=== PATIENT | female | born 1945 | race Caucasian/White ===

== ENCOUNTER 2016-06-13 06:07 | Day surgery (SDC) | payer OTHER ==
--- NOTE | ~2016-06-13 | EGD ---
EGD REPORT [facility] [address] [address] NAME: JOSE GUADALUPE GOLDBERG : 41 STATUS : [facility] PAT#: [id number] AGE: 70 ADM/REG DATE : 06/13/16 MR#: [id number] REPORT SERV DATE: 06/26/16 DICTATED BY: DATE: REPORT STATUS : Draft TRANSCRIBED BY: [employer] DATE: 06/26/16 THIS EXAM WAS SENT IN ERROR
--- NOTE | ~2016-06-13 | EGD ---
EGD REPORT [facility] [address] [address] NAME: ARIELLA CAMPOS : 41 STATUS : [facility] PAT#: [id number] AGE: 70 ADM/REG DATE : 06/13/16 MR#: [id number] REPORT SERV DATE: 06/26/16 DICTATED BY: DATE: REPORT STATUS : Draft TRANSCRIBED BY: [employer] DATE: 06/26/16 [facility] Patient Name: Ariella Campos Date of : 1945 Attending MD: MARION ARROYO MD Procedure Date No Time: 06/13/2016 Procedure: Colonoscopy Indications: High risk colon cancer surveillance: Personal history adenoma >= 10 mm in size, High risk colon CA surveillance: Personal history multiple (3 or more) adenomas, change in bowel habits, recent melena Referring MD: Lopez Elam Medicines: Monitored Anesthesia Care Complications: No immediate complications. Procedure: Pre-Anesthesia Assessment: - ASA Grade Assessment: III - A patient with severe systemic disease. After I obtained informed consent, the scope was passed under direct vision. Throughout the procedure, the patient's blood pressure, pulse, and oxygen saturations were monitored continuously. The PCF H190L [id number] was introduced through the anus and advanced to the cecum, identified by appendiceal orifice and ileocecal valve. The colonoscopy was performed without difficulty. The patient tolerated the procedure well. The quality of the bowel preparation was good. Findings: The perianal and digital rectal examinations were normal. Multiple small and large-mouthed diverticula were found in the sigmoid colon. A sessile polyp was found in the transverse colon. The polyp was small in size. The polyp was removed with a cold biopsy forceps. Resection and retrieval were complete. A sessile polyp was found at 60 cm proximal to the anus. The polyp was small in size. The polyp was removed with a cold biopsy forceps. Resection and retrieval were complete. A sessile polyp was found at the splenic flexure. The polyp was diminutive in size. The polyp was removed with a cold biopsy forceps. Resection and retrieval were complete. A sessile polyp was found at the splenic flexure. The polyp was small in size. The polyp was removed with a cold snare. Resection and retrieval were complete. A sessile polyp was found in the sigmoid colon. The polyp was diminutive in size. The polyp was removed with a cold biopsy forceps. Resection and EGD REPORT [address] [address] NAME: ARIELLA CAMPOS : [birth year] STATUS : [facility] PAT#: [id number] AGE: 70 ADM/REG DATE : 06/13/16 MR#: [id number] REPORT SERV DATE: 06/26/16 DICTATED BY: DATE: REPORT STATUS : Draft TRANSCRIBED BY: [employer] DATE: 06/26/16 retrieval were complete. No other significant abnormalities were identified in a careful examination of the remainder of the colon. There is no endoscopic evidence of inflammation, mass, ulcerations or angioectasia in the entire colon. Biopsies were taken with a cold forceps from the entire colon for evaluation of microscopic colitis. Internal hemorrhoids were found during retroflexion and were Grade I (internal hemorrhoids that do not prolapse). No additional abnormalities were found on retroflexion. Impression: - Diverticulosis in the sigmoid colon. - One small polyp in the transverse colon. Resected and retrieved. - One small polyp at 60 cm proximal to the anus. Resected and retrieved. - One diminutive polyp at the splenic flexure. Resected and retrieved. - One small polyp at the splenic flexure. Resected and retrieved. - One diminutive polyp in the sigmoid colon. Resected and retrieved. - Internal hemorrhoids. Recommendation: - Patient has a contact number available for emergencies. The signs and symptoms of potential delayed complications were discussed with the patient. Return to normal activities tomorrow. Written discharge instructions were provided to the patient. - High fiber diet. - Discharge patient to home. - Continue present medications. - Await pathology results. - Repeat colonoscopy in 3 years for surveillance. Procedure Code(s): --- Professional --- 37730, Colonoscopy, flexible, proximal to splenic flexure; with removal of tumor(s), polyp(s), or other lesion(s) by snare technique 72935, 59, Colonoscopy, flexible, proximal to splenic flexure; with biopsy, single or multiple Diagnosis Code(s): --- Professional --- K64.0, First degree hemorrhoids K57.30, Diverticulosis of large intestine without perforation or abscess without bleeding D12.5, Benign neoplasm of sigmoid colon D12.6, Benign neoplasm of colon, unspecified EGD REPORT [address] [address] NAME: ARIELLA CAMPOS : [birth year] STATUS : [facility]#: [id number] AGE: 70 ADM/REG DATE : 06/13/16 MR#: [id number] REPORT SERV DATE: 06/26/16 DICTATED BY: DATE: REPORT STATUS : Draft TRANSCRIBED BY: [employer] DATE: 06/26/16 D12.3, Benign neoplasm of transverse colon Z86.010, Personal history of colonic polyps CPT copyright 2013 [employer]. All rights reserved. The codes documented in this report are preliminary and upon fixture maker review may be revised to meet current compliance requirements. MARION ARROYO MD 06/13/2016 8:30 AM This report has been signed electronically. Number of Addenda: 0 Note Initiated On: 06/13/2016 7:46 AM Scope Withdrawal Time 0 hours 11 minutes 53 seconds
--- NOTE | ~2016-06-13 | EGD ---
EGD REPORT [facility] [address] [address] NAME: ARIELLA CAMPOS : 41 STATUS : [facility] PAT#: [id number] AGE: 70 ADM/REG DATE : 06/13/16 MR#: [id number] REPORT SERV DATE: 06/26/16 DICTATED BY: DATE: REPORT STATUS : Draft TRANSCRIBED BY: [employer] DATE: 06/26/16 Endoscopy Center Patient Name: Ariella Campos Date of : 1945 Attending MD: MARION ARROYO MD Procedure Date No Time: 06/13/2016 Procedure: Upper GI endoscopy Indications: Melena Referring MD: Lopez Elam Medicines: Monitored Anesthesia Care Complications: No immediate complications. Procedure: Pre-Anesthesia Assessment: - ASA Grade Assessment: III - A patient with severe systemic disease. After obtaining informed consent, the endoscope was passed under direct vision. Throughout the procedure, the patient's blood pressure, pulse, and oxygen saturations were monitored continuously. The GIF H190 [id number] was introduced through the mouth, and advanced to the third part of duodenum. The upper GI endoscopy was accomplished without difficulty. The patient tolerated the procedure well. 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 Biopsies were taken with a cold forceps for histology. A small hiatus hernia was present. There is no endoscopic evidence of Bagley's esophagus, areas of erosion, ulcerations or varices in the entire esophagus. A single 20 mm pedunculated polyp was found on the greater curvature of the gastric antrum. Area was successfully injected with 3 mL of a 1:10,000 solution of epinephrine for improved access (by lifting the lesion prior to destruction). Area was successfully injected with 3 mL Beatrice ink for tattooing. The polyp was removed with a hot snare. Resection and retrieval were complete. To prevent bleeding after the polypectomy, two hemostatic clips were successfully placed. There was no bleeding during, and at the end, of the procedure. A single small papule (nodule) with was found in the gastric antrum. Biopsies were taken with a cold forceps for histology. No other significant abnormalities were identified in a careful examination of the stomach. There is no endoscopic evidence of ulceration or varices in the entire examined stomach. The examined duodenum was normal. There is no endoscopic evidence of inflammation, mucosal abnormalities EGD REPORT [place] [id number] [facility]. [address] NAME: ARIELLA CAMPOS : 41 STATUS : [facility] PAT#: [id number] AGE: 70 ADM/REG DATE : 06/13/16 MR#: [id number] REPORT SERV DATE: 06/26/16 DICTATED BY: DATE: REPORT STATUS : Draft TRANSCRIBED BY: [employer] DATE: 06/26/16 or ulceration in the entire examined duodenum. The cardia and gastric fundus were otherwise normal on retroflexion. 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 Biopsied. - Hiatus hernia. - A single gastric polyp. Resected and retrieved. Injected. Clips were placed. - A single small papule (nodule) with was found in the stomach. Biopsied. - Normal examined duodenum. Recommendation: - Patient has a contact number available for emergencies. The signs and symptoms of potential delayed complications were discussed with the patient. Return to normal activities tomorrow. Written discharge instructions were provided to the patient. - Return to previous diet. - Discharge patient to home. - Continue present medications. - Await pathology results. Procedure Code(s): --- Professional --- 70197, Esophagogastroduodenoscopy, flexible, transoral; with removal of tumor(s), polyp(s), or other lesion(s) by snare technique 83971, 59, Esophagogastroduodenoscopy, flexible, transoral; with directed submucosal injection(s), any substance 97332, 59, Esophagogastroduodenoscopy, flexible, transoral; with biopsy, single or multiple Diagnosis Code(s): --- Professional --- Q39.4, Esophageal web K44.9, Diaphragmatic hernia without obstruction or gangrene K31.7, Polyp of stomach and duodenum K31.9, Disease of stomach and duodenum, unspecified K92.1, Melena CPT copyright 2013 [employer]. All rights reserved. The codes documented in this report are preliminary and upon fire sprinkler apparatus inspector review may be revised to meet current compliance requirements. MARION ARROYO MD EGD REPORT [facility] [address] [address] NAME: ARIELLA CAMPOS : 41 STATUS : [facility] PAT#: [id number] AGE: 70 ADM/REG DATE : 06/13/16 MR#: [id number] REPORT SERV DATE: 06/26/16 DICTATED BY: DATE: REPORT STATUS : Draft TRANSCRIBED BY: [employer] DATE: 06/26/16 06/13/2016 8:09 AM This report has been signed electronically. Number of Addenda: 0 Note Initiated On: 06/13/2016 7:46 AM Scope Withdrawal Time 0 hours 0 minutes 0 seconds [address] [id number]
--- NOTE | ~2016-06-13 | EGD ---
EGD REPORT [facility] [address] [address] NAME: ARIELLA CAMPOS : 41 STATUS : [facility] PAT#: [id number] AGE: 70 ADM/REG DATE : 06/13/16 MR#: [id number] REPORT SERV DATE: 06/26/16 DICTATED BY: DATE: REPORT STATUS : Draft TRANSCRIBED BY: [employer] DATE: 06/26/16 Endoscopy Center Patient Name: Ariella Campos Date of : 1945 Attending MD: MARION ARROYO MD Procedure Date No Time: 06/13/2016 Procedure: Upper GI endoscopy Indications: Melena Referring MD: Lopez lEam Medicines: Monitored Anesthesia Care Complications: No immediate complications. Procedure: Pre-Anesthesia Assessment: - ASA Grade Assessment: III - A patient with severe systemic disease. After obtaining informed consent, the endoscope was passed under direct vision. Throughout the procedure, the patient's blood pressure, pulse, and oxygen saturations were monitored continuously. The GIF H190 [id number] was introduced through the mouth, and advanced to the third part of duodenum. The upper GI endoscopy was accomplished without difficulty. The patient tolerated the procedure well. 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 Biopsies were taken with a cold forceps for histology. A small hiatus hernia was present. There is no endoscopic evidence of Bagley's esophagus, areas of erosion, ulcerations or varices in the entire esophagus. A single 20 mm pedunculated polyp was found on the greater curvature of the gastric antrum. Area was successfully injected with 3 mL of a 1:10,000 solution of epinephrine for improved access (by lifting the lesion prior to destruction). Area was successfully injected with 3 mL Beatrice ink for tattooing. The polyp was removed with a hot snare. Resection and retrieval were complete. To prevent bleeding after the polypectomy, two hemostatic clips were successfully placed. There was no bleeding during, and at the end, of the procedure. A single small papule (nodule) with was found in the gastric antrum. Biopsies were taken with a cold forceps for histology. No other significant abnormalities were identified in a careful examination of the stomach. There is no endoscopic evidence of ulceration or varices in the entire examined stomach. The examined duodenum was normal. There is no endoscopic evidence of inflammation, mucosal abnormalities EGD REPORT [place] [address] [facility] [place]. [address] NAME: ARIELLA CAMPOS : 41 STATUS : [facility] PAT#: [id number] AGE: 70 ADM/REG DATE : 06/13/16 MR#: [id number] REPORT SERV DATE: 06/26/16 DICTATED BY: DATE: REPORT STATUS : Draft TRANSCRIBED BY: [employer] DATE: 06/26/16 or ulceration in the entire examined duodenum. The cardia and gastric fundus were otherwise normal on retroflexion. 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 Biopsied. - Hiatus hernia. - A single gastric polyp. Resected and retrieved. Injected. Clips were placed. - A single small papule (nodule) with was found in the stomach. Biopsied. - Normal examined duodenum. Recommendation: - Patient has a contact number available for emergencies. The signs and symptoms of potential delayed complications were discussed with the patient. Return to normal activities tomorrow. Written discharge instructions were provided to the patient. - Return to previous diet. - Discharge patient to home. - Continue present medications. - Await pathology results. Procedure Code(s): --- Professional --- 53052, Esophagogastroduodenoscopy, flexible, transoral; with removal of tumor(s), polyp(s), or other lesion(s) by snare technique 95607, 59, Esophagogastroduodenoscopy, flexible, transoral; with directed submucosal injection(s), any substance 03386, 59, Esophagogastroduodenoscopy, flexible, transoral; with biopsy, single or multiple Diagnosis Code(s): --- Professional --- Q39.4, Esophageal web K44.9, Diaphragmatic hernia without obstruction or gangrene K31.7, Polyp of stomach and duodenum K31.9, Disease of stomach and duodenum, unspecified K92.1, Melena CPT copyright 2013 [employer]. All rights reserved. The codes documented in this report are preliminary and upon rough rounder machine review may be revised to meet current compliance requirements. MARION ARROYO MD EGD REPORT [facility] [address] [address] NAME: ARIELLA CAMPOS : 41 STATUS : [facility] PAT#: [id number] AGE: 70 ADM/REG DATE : 06/13/16 MR#: [id number] REPORT SERV DATE: 06/26/16 DICTATED BY: DATE: REPORT STATUS : Draft TRANSCRIBED BY: [employer] DATE: 06/26/16 06/13/2016 8:09 AM This report has been signed electronically. Number of Addenda: 0 Note Initiated On: 06/13/2016 7:46 AM Scope Withdrawal Time 0 hours 0 minutes 0 seconds [address] [address]
--- NOTE | ~2016-06-13 | EGD ---
EGD REPORT [facility] [address] [address] NAME: ARIELLA CAMPOS : 41 STATUS : [facility] PAT#: [id number] AGE: 70 ADM/REG DATE : 06/13/16 MR#: [id number] REPORT SERV DATE: 06/26/16 DICTATED BY: DATE: REPORT STATUS : Draft TRANSCRIBED BY: [employer] DATE: 06/26/16 Endoscopy Center Patient Name: Ariella Campos Date of : 1945 Attending MD: MARION ARROYO MD Procedure Date No Time: 06/13/2016 Procedure: Colonoscopy Indications: High risk colon cancer surveillance: Personal history adenoma >= 10 mm in size, High risk colon CA surveillance: Personal history multiple (3 or more) adenomas, change in bowel habits, recent melena Referring MD: Lopez Elam Medicines: Monitored Anesthesia Care Complications: No immediate complications. Procedure: Pre-Anesthesia Assessment: - ASA Grade Assessment: III - A patient with severe systemic disease. After I obtained informed consent, the scope was passed under direct vision. Throughout the procedure, the patient's blood pressure, pulse, and oxygen saturations were monitored continuously. The PCF H190L [id number] was introduced through the anus and advanced to the cecum, identified by appendiceal orifice and ileocecal valve. The colonoscopy was performed without difficulty. The patient tolerated the procedure well. The quality of the bowel preparation was good. Findings: The perianal and digital rectal examinations were normal. Multiple small and large-mouthed diverticula were found in the sigmoid colon. A sessile polyp was found in the transverse colon. The polyp was small in size. The polyp was removed with a cold biopsy forceps. Resection and retrieval were complete. A sessile polyp was found at 60 cm proximal to the anus. The polyp was small in size. The polyp was removed with a cold biopsy forceps. Resection and retrieval were complete. A sessile polyp was found at the splenic flexure. The polyp was diminutive in size. The polyp was removed with a cold biopsy forceps. Resection and retrieval were complete. A sessile polyp was found at the splenic flexure. The polyp was small in size. The polyp was removed with a cold snare. Resection and retrieval were complete. A sessile polyp was found in the sigmoid colon. The polyp was diminutive in size. The polyp was removed with a cold biopsy forceps. Resection and EGD REPORT [address] [address] NAME: ARIELLA CAMPOS : 41 STATUS : [facility] PAT#: [id number] AGE: 70 ADM/REG DATE : 06/13/16 MR#: [id number] REPORT SERV DATE: 06/26/16 DICTATED BY: DATE: REPORT STATUS : Draft TRANSCRIBED BY: [employer] DATE: 06/26/16 retrieval were complete. No other significant abnormalities were identified in a careful examination of the remainder of the colon. There is no endoscopic evidence of inflammation, mass, ulcerations or angioectasia in the entire colon. Biopsies were taken with a cold forceps from the entire colon for evaluation of microscopic colitis. Internal hemorrhoids were found during retroflexion and were Grade I (internal hemorrhoids that do not prolapse). No additional abnormalities were found on retroflexion. Impression: - Diverticulosis in the sigmoid colon. - One small polyp in the transverse colon. Resected and retrieved. - One small polyp at 60 cm proximal to the anus. Resected and retrieved. - One diminutive polyp at the splenic flexure. Resected and retrieved. - One small polyp at the splenic flexure. Resected and retrieved. - One diminutive polyp in the sigmoid colon. Resected and retrieved. - Internal hemorrhoids. Recommendation: - Patient has a contact number available for emergencies. The signs and symptoms of potential delayed complications were discussed with the patient. Return to normal activities tomorrow. Written discharge instructions were provided to the patient. - High fiber diet. - Discharge patient to home. - Continue present medications. - Await pathology results. - Repeat colonoscopy in 3 years for surveillance. Procedure Code(s): --- Professional --- 04771, Colonoscopy, flexible, proximal to splenic flexure; with removal of tumor(s), polyp(s), or other lesion(s) by snare technique 33305, 59, Colonoscopy, flexible, proximal to splenic flexure; with biopsy, single or multiple Diagnosis Code(s): --- Professional --- K64.0, First degree hemorrhoids K57.30, Diverticulosis of large intestine without perforation or abscess without bleeding D12.5, Benign neoplasm of sigmoid colon D12.6, Benign neoplasm of colon, unspecified EGD REPORT [address] [address] NAME: ARIELLA CAMPOS : 41 STATUS : [facility]#: [id number] AGE: 70 ADM/REG DATE : 06/13/16 MR#: [id number] REPORT SERV DATE: 06/26/16 DICTATED BY: DATE: REPORT STATUS : Draft TRANSCRIBED BY: [employer] DATE: 06/26/16 D12.3, Benign neoplasm of transverse colon Z86.010, Personal history of colonic polyps CPT copyright 2013 [employer]. All rights reserved. The codes documented in this report are preliminary and upon long term care pharmacist review may be revised to meet current compliance requirements. MARION ARROYO MD 06/13/2016 8:30 AM This report has been signed electronically. Number of Addenda: 0 Note Initiated On: 06/13/2016 7:46 AM Scope Withdrawal Time 0 hours 11 minutes 53 seconds
[~2016-06-13 06:07] MED LIST: ADVAIR250 INH; ASA5GR PO; ASAB PO; ATEN50 PO; CALTRAT600 PO; CELEXA20 PO; COZ50 PO; CRESTOR20 MG PO; DITRO5 PO; GLUCPH PO; LOVENOX1C SC; NEXIUM20 M1 PO; PRIN2.5 PO; PROBIOTIC; RAN500 PO; SINGULAIR1 PO; SYN.05 PO; TRAZ100 PO; VITAMIN D31000 UNIT PO; Vitamin D PO; X5 PO; ZYRTEC ALLGY10 MG PO
== END 2016-06-13 23:59 | disposition home or self-care (01) ==
LOC: DMU 06:07
PROVIDERS: Internal Medicine Gastroenterology
PROC: 0DB68ZX Excision of Stomach, Via Natural or Artificial Opening Endoscopic, Diagnostic (ICD-10-PCS; 2016-06-13)
PROC: 0DBL8ZZ Excision of Transverse Colon, Via Natural or Artificial Opening Endoscopic (ICD-10-PCS; principal; 2016-06-13 07:30)
PROC: 0DBE8ZZ Excision of Large Intestine, Via Natural or Artificial Opening Endoscopic (ICD-10-PCS; 2016-06-13 07:30)
PROC: 0DBN8ZZ Excision of Sigmoid Colon, Via Natural or Artificial Opening Endoscopic (ICD-10-PCS; 2016-06-13 07:30)
PROC: 0DB38ZX Excision of Lower Esophagus, Via Natural or Artificial Opening Endoscopic, Diagnostic (ICD-10-PCS; 2016-06-13 07:30)
DX: K31.7 Polyp of stomach and duodenum (principal); K63.5 Polyp of colon; D12.3 Benign neoplasm of transverse colon; K57.30 Diverticulosis of large intestine without perforation or abscess without bleeding; K64.0 First degree hemorrhoids; K44.9 Diaphragmatic hernia without obstruction or gangrene; I11.0 Hypertensive heart disease with heart failure; I50.9 Heart failure, unspecified; E11.9 Type 2 diabetes mellitus without complications; E78.00 Pure hypercholesterolemia, unspecified; M19.90 Unspecified osteoarthritis, unspecified site; J45.909 Unspecified asthma, uncomplicated; N20.0 Calculus of kidney; Z86.010 Personal history of colon polyps; Z86.73 Personal history of transient ischemic attack (TIA), and cerebral infarction without residual deficits; Z85.820 Personal history of malignant melanoma of skin; Z88.5 Allergy status to narcotic agent; Z91.09 Other allergy status, other than to drugs and biological substances; Z79.51 Long term (current) use of inhaled steroids; Z79.84 Long term (current) use of oral hypoglycemic drugs; Z79.82 Long term (current) use of aspirin; Z79.899 Other long term (current) drug therapy; Z90.49 Acquired absence of other specified parts of digestive tract; Z90.710 Acquired absence of both cervix and uterus; Z98.890 Other specified postprocedural states
CPT/HCPCS: 82962; 88305

== ENCOUNTER 2016-08-26 07:57 | Inpatient (IN) | payer OTHER ==
--- NOTE | ~2016-08-26 | DS ---
Discharge Summary [place] [id number] [facility] [place] [address] NAME: JOSE GUADALUPE GOLDBERG : 41 STATUS : DIS IN PAT#: [id number] AGE: 70 ADM/REG DATE : 08/26/16 MR#: [id number] REPORT SERV DATE: 09/11/16 DICTATED BY: JASON GARDNER DATE: 09/10/16 REPORT STATUS : Draft TRANSCRIBED BY: LENA DATE: 09/10/16 Data Collection from hospitalization DISCHARGE DIAGNOSES: 1. Perforated viscus most likely consistent with perforated sigmoid diverticulitis. 2. Leukocytosis. 3. Type 2 diabetes mellitus. 4. Hypertension. 5. Neuropathy. 6. Hypokalemia. 7. Urinary tract infection. 8. Morbid obesity. CONSULTATION: Zena Poe NP PROCEDURES PERFORMED: 1. Exploratory laparotomy, left colectomy with Nhung pouch and descending colostomy, mobilization of splenic flexure for adequate length for colostomy, 08/26/2016. 2. CT scan of the abdomen and pelvis without contrast, 08/26/2016. PATHOLOGY: Resected segment of descending colon-diverticular disease with acute diverticulitis with transmural inflammation and abscess formation, focal foreign body reaction, and severe serosal acute inflammation, stapled margin not involved (inflammation restricted to serosa at margin). Single benign lymph node (0/1). Resected segment of sigmoid-diverticulosis without significant inflammatory component, margins not involved. MEDICATIONS: Xanax 0.5 mg as needed, aspirin 325 mg every day at bedtime, Caltrate 600 mg every morning, Zyrtec 10 mg every day at bedtime, vitamin D3 1000 units every morning, Cipro 500 mg every 12 hours, Celexa 20 mg every morning, Nexium 20 mg twice a day, Advair Diskus one puff via inhaler twice a day, Woden 5/325 one tablet every four to six hours as needed, Synthroid 50 mcg every morning, Cozaar 50 mg every day at bedtime, Glucophage 500 mg at bedtime, probiotic daily as instructed, Singulair 10 mg at bedtime, Ditropan 10 mg every evening, Ranexa 500 mg twice a day, Crestor 10 mg at bedtime. CONDITION AT DISCHARGE: Stable. DISPOSITION: The patient was discharged home to be followed by home health care on a soft low-fat diet with activities as instructed. She would follow up with Dr. Jason Gardner, 09/10/2016. She would follow up with her primary care provider as needed. HOSPITAL COURSE: This is a 70-year-old female, who presented to the emergency department with 24 hours of severe localized left lower quadrant pain. The pain was sharp without radiation. She had had no previous abdominal abnormalities. She had progressive discomfort and then generalized abdominal pain and was seen in the emergency department. She was found to have leukocytosis with a white blood cell count of 11,000 and hypokalemia with potassium 3.3 as well as urinary tract infection. A CT scan of the abdomen and pelvis revealed free intraperitoneal air consistent with perforation of a hollow viscus with the most likely source being diverticulitis at the junction of the descending sigmoid colon. On exam, the Discharge Summary [address] [address] NAME: JOSE GUADALUPE GOLDBERG : 41 STATUS : DIS IN PAT#: [id number] AGE: 70 ADM/REG DATE : 08/26/16 MR#: [id number] REPORT SERV DATE: 09/11/16 DICTATED BY: JASON GARDNER DATE: 09/10/16 REPORT STATUS : Draft TRANSCRIBED BY: MODL DATE: 09/10/16 patient had voluntary guarding and peritoneal signs and severe pain. After a lengthy discussion with the patient, she wanted to proceed with surgery. She was admitted to the hospital at this time for further evaluation and treatment. Upon admission, she was taken to the operating room, where she underwent the above-mentioned procedure. She tolerated this well and there were no complications. On postop day one, she was awake and alert. She was afebrile. Her abdomen was soft. The ostomy was dusky and viable. White count was 12.5. On 08/28/2016, she remained afebrile. White count was 10.7. She was tolerating clear liquids without nausea or vomiting. She had moderate pain and discomfort as expected. Her diet was going to be advanced. We encouraged her to mobilize. She was seen by Zena Poe regarding diabetes management. She had been asked to manage the patient's blood sugars while she was an inpatient. White blood cell count was 12.5, creatinine was 0.78. The patient is normally on metformin at home. She states that her average blood sugars are 145 and 175. She only checks her blood sugars in the morning. She was going to undergo diabetes education. Hemoglobin A1c was going to be checked. She was placed on level 2 sliding scale insulin. She was also placed on a clear liquid diet. IV fluids were adjusted. Synthroid was continued for hypothyroidism. We were going to check TSH and free T4. Aspirin was on hold presently. She was on losartan and Ranexa. Advair Diskus was continued as well as Singulair and Zyrtec. Crestor was continued as well. She underwent diabetes education. On 08/29/2016, she was alert. She did have some complaints of gas pain. The ostomy has some gas in the appliance bag. Urine output was adequate. White blood cell count was 7.2. She was making good progress. The next day, her diet was advanced. She developed severe nausea and abdominal discomfort. Her bandages were intact. On 08/31/2016, she was still uncomfortable, but oral pain medications were adequate. Surgical BAG SORTER had revealed E coli and Klebsiella pneumoniae, both sensitive to Ancef. Discharge instructions were given. Her blood sugars were controlled. She had good glycemic control. Discharge instructions were given. Due to her improved and stable condition, she was discharged home to be followed by home health care with the above-stated instructions. Information collected by: Elizabeth Mauro I submit the above information as my discharge summary. TG/MODL Jason Gardner M.D. / [id number] CC: Kyle Navarro M.D.
--- NOTE | ~2016-08-26 | HP ---
History And Physical [place] [address] [place]. [address] NAME: JOSE GUADALUPE GOLDBERG : 41 STATUS : ADM IN [facility]#: [id number] AGE: 70 ADM/REG DATE : 08/26/16 MR#: [id number] REPORT SERV DATE: 08/26/16 DICTATED BY: JASON GARDNER DATE: 08/26/16 REPORT STATUS : Draft TRANSCRIBED BY: MODJuan DATE: 08/26/16 DATE OF ADMISSION: 08/26/2016 CHIEF COMPLAINT: Abdominal pain. HISTORY OF PRESENT ILLNESS: This pleasant 70-year-old female presented to the emergency department with 24 hours of severe localized left lower quadrant pain. The pain was sharp and without radiation. She had no previous abdominal abnormalities. She had progressive discomfort and then generalized abdominal pain and was seen in the emergency department. She was noted to have leukocytosis with a white blood cell count of 11,000 and hypokalemia with potassium of 3.3 and urinary tract infection. She underwent a CT scan of the abdomen and pelvis and was noted to have free intraperitoneal air consistent with perforation of a hollow viscus with most likely source being diverticulitis at the junction of descending sigmoid colon. The patient on exam has involuntary guarding and peritoneal signs and severe pain. After a lengthy discussion with the patient, she wished to proceed with surgery. She is aware that she would need a resection of the bowel and ostomy most likely. She is aware that this may not be reversible. She has a past medical history for morbid obesity, hypothyroidism, diabetes mellitus type 2 with neuropathy, and a question of congestive heart failure. She has been in her usual state of health until the last two days. She declines observation with IV antibiotics and serial exam and imaging. PAST MEDICAL HISTORY: As above. Asthma with oxygen at night. PAST SURGICAL HISTORY: Hysterectomy, appendectomy, open cholecystectomy, back surgery, and a breast cyst removal. ALLERGIES: MORPHINE. FAMILY HISTORY: Positive for heart disease and diabetes. SOCIAL HISTORY: The patient is a . She denies alcohol, tobacco, or illicit drug usage. REVIEW OF SYSTEMS: No headache, blurred vision, dizziness, chest pain, shortness of breath, cough, dyspnea on exertion, syncope, palpitations, jaundice, itching, bright red blood per rectum, or melena. The patient does have severe abdominal pain. PHYSICAL EXAMINATION: GENERAL: Obese female, in moderate distress. HEENT: Normocephalic, atraumatic. NECK: Supple. No adenopathy. CARDIOVASCULAR: Regular rate and rhythm without murmur. RESPIRATORY: Clear to auscultation. ABDOMEN: Obese, soft. The patient has percussive tenderness and rebound tenderness on exam, greatest in the left lower quadrant. There is well-healed scars in the low midline and right upper quadrant. History And Physical [address] [address] NAME: JOSE GUADALUPE GOLDBERG : 41 STATUS : ADM IN [facility]#: [id number] AGE: 70 ADM/REG DATE : 08/26/16 MR#: [id number] REPORT SERV DATE: 08/26/16 DICTATED BY: JASON GARDNER DATE: 08/26/16 REPORT STATUS : Draft TRANSCRIBED BY: LENA DATE: 08/26/16 BACK: No CVA tenderness. EXTREMITIES: The patient has 2+ pitting edema bilaterally. ASSESSMENT: 1. Perforated sigmoid diverticulitis with possible other perforated viscus. 2. Leukocytosis. 3. Diabetes mellitus type 2 with neuropathy. 4. Morbid obesity. 5. Hypertension with reported history of congestive heart failure. 6. Asthma with need for oxygen at night. 7. Hypothyroidism. 8. Urinary tract infection. 9. Hypokalemia. PLAN: The patient will be admitted for emergent surgery. She is aware of the risks, benefits, and alternatives. She was informed of the potential for bleeding, infection, poor cosmetic result, need for further surgical intervention, and injury to the retroperitoneal structures and intraabdominal structures including the ureter, bowel and vascular structures. She is aware of the potential for DVT, PE, WA, CVA, and even . She wishes to proceed. /LENA Jason Gardner M.D. / [id number] CC: Kyle Navarro M.D. Colleen Schmitt, M.D.
--- NOTE | ~2016-08-26 | CN ---
Consultation Report [address] [place]. [address] NAME: JOSE GUADALUPE GOLDBERG : 41 STATUS : ADM IN PAT#: [id number] AGE: 70 ADM/REG DATE : 08/26/16 MR#: [id number] REPORT SERV DATE: 08/28/16 DICTATED BY: JOSEPHZENA MAKSIM DATE: 08/28/16 REPORT STATUS : Draft TRANSCRIBED BY: MODL DATE: 08/28/16 CONSULTATION DATE OF CONSULTATION: 08/27/2016 REASON FOR CONSULTATION: Consulted for diabetes management. IDENTIFYING DATA: 1. PCP: Lopez Elam III, M.D. 2. Application Engineer: Kasandra Rivera M.D. 3. Avionics Electronics Technician: René Gray M.D. 4. Drawing Frame Tender: Sixto Bennett M.D. HISTORY OF PRESENT ILLNESS: This is a pleasant 70-year-old female who is admitted to Dr. Jason Smalls, with abdominal pain to the left lower quadrant. Testing has noted that she had a perforated viscus likely cause a perforated sigmoid diverticulitis. She is presently status post exploratory laparotomy with left colectomy and descending colostomy on 08/26/2016. The patient has a history of asthma, being on O2 at 4 L per nasal cannula at night; diabetes type 2, where her average blood sugars are 145 to 175; neuropathy; hypercholesterolemia; TIA in 12/2011; morbid obesity; hypertension; hypothyroidism; chest pain and questionable CHF in the past. [facility] has been consulted to manage her glucose and blood sugars while she is inpatient. The patient's history was obtained through careful interview with the patient as well as review of [employer] and [employer]. PAST MEDICAL HISTORY: 1. Asthma on O2 at 4 L per nasal cannula at night. 2. UTI. 3. Cataracts. 4. Myopia. 5. Arthritis. 6. Diabetes, type 2. 7. Hiatal hernia. 8. Polyps. 9. Neuropathy. 10.Hypercholesterolemia. 11.TIA in 12/2011. 12.Morbid obesity. 13.Chest pain. 14.Mitral valve prolapse. 15.Hypertension. 16.Questionable CHF. 17.Hypothyroidism. Consultation Report [address] [place]. [address] NAME: JOSE GUADALUPE GOLDBERG : 41 STATUS : ADM IN PAT#: [id number] AGE: 70 ADM/REG DATE : 08/26/16 MR#: [id number] REPORT SERV DATE: 08/28/16 DICTATED BY: ZENA RUIZ DATE: 08/28/16 REPORT STATUS : Draft TRANSCRIBED BY: LENA DATE: 08/28/16 18.A blocked carotid artery. HOME MEDICATIONS: 1. Xanax 0.5 mg p.o. p.r.n. as needed for anxiety. 2. Aspirin 325 mg p.o. every day at bedtime. 3. Caltrate 600 mg p.o. every morning. 4. Zyrtec 10 mg p.o. every day at bedtime. 5. Vitamin D3 of 1000 units p.o. every morning. 6. Celexa 20 mg p.o. every morning. 7. Nexium 20 mg p.o. twice a day. 8. Advair Diskus 250/50 one puff inhalation twice a day. 9. Synthroid 50 mcg p.o. every morning. 10.Cozaar 50 mg p.o. every day at bedtime. 11.Glucophage 500 mg p.o. at bedtime. 12.Probiotic medication daily. 13.Singulair 10 mg p.o. at bedtime. 14.Ditropan 10 mg p.o. every evening. 15.Ranexa 500 mg p.o. twice a day. 16.Crestor 10 mg p.o. at bedtime. ALLERGIES: MORPHINE AND ADHESIVE TAPE. SOCIAL HISTORY: The patient is a , lives in a single-level home. No alcohol, tobacco, or illicit drug use. FAMILY HISTORY: Positive for coronary artery disease and diabetes. Mother had coronary artery disease and diabetes. Father had coronary artery disease and diabetes. The patient had two sisters, who are diabetic. SURGICAL HISTORY: 1. Hysterectomy. 2. Back surgeries x2 with a kyphoplasty in 2014. 3. EGD on 06/13/2016. 4. Cardiac catheterization, 04/28/2009. 5. Appendectomy. 6. Perforated sigmoid diverticulitis with perforated viscus, on her present admission, 08/26/2016. 7. Open cholecystectomy, 1979. 8. Rib fractures and torn ACL. 9. Right breast cyst removal, which were benign x2. 10.Colonoscopy, 2009. Consultation Report [facility] [address] [place]. [address] NAME: JOSE GUADALUPE GOLDBERG : 41 STATUS : ADM IN [facility]#: [id number] AGE: 70 ADM/REG DATE : 08/26/16 MR#: [id number] REPORT SERV DATE: 08/28/16 DICTATED BY: ZENA RUIZ DATE: 08/28/16 REPORT STATUS : Draft TRANSCRIBED BY: MODL DATE: 08/28/16 REVIEW OF SYSTEMS: Negative other than what is in HPI. The patient is alert and oriented x3 after awakened, she was sleepy on arrival to room. No nausea and vomiting. No abdominal pain presently. No chest pain. No fever. Displays no confusion or agitation. PHYSICAL EXAMINATION: VITAL SIGNS: From today, blood pressure 134/63, respiratory rate 16, heart rate 83, temperature 98.6, O2 saturation 92% on 3 L nasal cannula. GENERAL: This is a very obese, female, resting in bed, in no acute distress. She does have [place] Dilaudid if needed for pain. NEURO: Her head is atraumatic, normocephalic. She is alert and oriented x3. Very sleepy, slow to respond to questioning. Cranial nerves intact. She is pleasant and appropriate. NECK: Supple. Trachea is midline. No JVD noted. No obvious thyromegaly or lymphadenopathy. EENT: Her sclerae are nonicteric. Her pupils are equal and reactive to light. Her nares are patent. Her mucous membranes moist. Tongue is midline without deviation. Her soft palate rises equally with phonation. CHEST: No pain with palpation. LUNGS: Clear to auscultation bilaterally. She has normal respiratory effort. No increased work of breathing with conversation. She is to wear O2 at 3 to 4 L per nasal cannula every night at sleep, which is what is ordered at home. CARDIOVASCULAR: S1, S2. No obvious murmurs, rubs, or gallops. She does have a regular rhythm on auscultation, rate at 83. She will be placed on telemetry. ABDOMEN: Soft, but slightly tender at the midline abdominal incision area. She has hypoactive bowel sounds. Last bowel movement noted was on 08/25/2016. EXTREMITIES: Normal distal pulses. No calf tenderness. No edema. She is on heparin subcu for DVT prophylaxis. SKIN: Warm and dry. No unusual rashes or lesions. Normal color and turgor for age. PSYCH: The patient is pleasant and cooperative. Appropriate mood and affect. SURGICAL WOUND SITE: Her dressing is clean, dry, and intact. She does have a midline abdominal incision with a dressing in place and an ostomy bag intact with a small amount of sanguinous drainage. LABORATORY DATA: Sodium 139, potassium 4.0, chloride 102, BUN 20, creatinine 0.78, GFR 88, glucose 281, calcium 8.4. White blood cell 12.5, hemoglobin 12.6, hematocrit 38.2, platelets 226. On 08/17/2015, the patient had a nuclear myocardial imaging, which showed no ischemia, post infusion. LVEF was greater than 60%, which showed an overall low risk stress test. The ECG has noted sinus rhythm on 08/26/2016. TTE on 07/02/2016, showed normal left ventricular systolic function with EF greater than 75%. Normal right ventricular chamber size and systolic function. No significant valvular regurgitation or stenosis. Consultation Report [address] [place]. [address] NAME: JOSE GUADALUPE GOLDBERG : 41 STATUS : ADM IN [facility]#: [id number] AGE: 70 ADM/REG DATE : 08/26/16 MR#: [id number] REPORT SERV DATE: 08/28/16 DICTATED BY: ZENA RUIZ DATE: 08/28/16 REPORT STATUS : Draft TRANSCRIBED BY: LENA DATE: 08/28/16 ASSESSMENT AND PLAN: 1. Diabetes, type 2. The patient is diabetic. She is normally on metformin at home. She states her average blood sugars are 145 to 175. She only checks her blood sugars in the morning. We will have a wellness educator to see her regarding education on diet and monitoring. Check hemoglobin A1c in the morning. Place her on a sliding scale level 2. She is now on clear liquid diet so we will make her blood sugars a.c. and at bedtime where previously they were q.6 hours. Noted that her blood sugars are elevated with her on a clear liquid diet. We will change her IV fluid to 1/2 normal saline with 20 KCl and decrease the rate to 50 an hour and take out the dextrose that was previously in the IV fluids. 2. Hypothyroidism. Aware. The patient will be continued on her Synthroid and will check a TSH and a free-T4 in the a.m. 3. Hypertension. The patient does have a history of having chest pain, TIA in the past, questionable CHF in the past, although I think her previous TTE showed an EF of 75%. We will decrease IV fluids to 50 an hour since the patient is taking clear liquid fluids. She is on losartan, Ranexa. Aspirin is presently on hold. We will place her on telemetry since she has a cardiac history. 4. Asthma. Aware. The patient has her Advair Diskus continued as well as her Singulair and Zyrtec. She is on O2 at 3 to 4 L at home at night. We will keep her O2 sats 92% or greater. 5. Hypercholesterolemia. Aware. The patient is on Crestor daily. 6. A.m. labs: BMP, CBC, hemoglobin A1c, magnesium, phosphorus, TSH, free T4. The [facility] would like to thank you for this consultation. Let us know if we can be of further assistance. WILBUR Zena Ruiz NP / [id number] CC: Kyle Navarro M.D.
--- NOTE | ~2016-08-26 | OP ---
Record Of Operation [facility] [address] [facility] [place]. [address] NAME: JOSE GUADALUPE GOLDBERG : 41 STATUS : ADM IN PAT#: [id number] AGE: 70 ADM/REG DATE : 08/26/16 MR#: [id number] REPORT SERV DATE: 08/26/16 DICTATED BY: JASON GARDNER DATE: 08/26/16 REPORT STATUS : Draft TRANSCRIBED BY: MODL DATE: 08/26/16 DATE OF PROCEDURE: PREOPERATIVE DIAGNOSES: 1. Perforated viscus most likely consistent with perforated sigmoid diverticulitis. 2. Leukocytosis. 3. Diabetes mellitus type 2 with neuropathy. 4. Hypokalemia. 5. Urinary tract infection. 6. Morbid obesity. 7. Hypertension. POSTOPERATIVE DIAGNOSES: 1. Perforated viscus most likely consistent with perforated sigmoid diverticulitis. 2. Leukocytosis. 3. Diabetes mellitus type 2 with neuropathy. 4. Hypokalemia. 5. Urinary tract infection. 6. Morbid obesity. 7. Hypertension. PROCEDURES: 1. Exploratory laparotomy. 2. Left colectomy with Nhung pouch and descending colostomy. 3. Mobilization of splenic flexure for adequate length for colostomy. ANESTHESIA: General. SURGEON: Jason Gardner M.D. BEHAVIORAL HEALTH SPECIALIST: Clive. COMPLICATIONS: None. DRAINS: None. ESTIMATED BLOOD LOSS: 50 mL. FINDINGS: The patient was noted to have a perforated diverticulitis at the descending colon with inflammation extending down from the middescending colon to the distal sigmoid colon. OPERATIVE TECHNIQUE: The patient was brought to the operating room, placed on the table in supine position. She had preoperative IV antibiotics. She underwent general endotracheal anesthesia and was prepped and draped in sterile fashion and a Simon catheter was placed. A midline incision was made after time-out and the abdomen was entered and explored. She had some adhesions of the omentum to the midline and these were taken down using electrocautery. Record Of Operation [place] [id number] [facility] [place]. [address] NAME: JOSE GUADALUPE GOLDBERG : 43 STATUS : ADM IN PAT#: [id number] AGE: 70 ADM/REG DATE : 08/26/16 MR#: [id number] REPORT SERV DATE: 08/26/16 DICTATED BY: JASON GARDNER DATE: 08/26/16 REPORT STATUS : Draft TRANSCRIBED BY: MODL DATE: 08/26/16 Exploration of the abdomen revealed inflammation of the descending colon to the mid sigmoid colon with what appeared to be a hole in the anterior border of the colon at the distal descending colon. The decision was made to perform a colectomy and Nhung pouch. The bowel was mobilized from the pelvis along the white line of Toldt all the way to the splenic flexure. The entire splenic flexure was taken down as it was needed for length for the colostomy. At this point, the dissection continued until the bowel was completely mobilized to the midline from the left to the right. A window was then created in the mesenteric border at the mid sigmoid and Contour stapler was used to divide the bowel. The bowel was then divided carefully taking mid mesentery using the ligature proximally to the middescending colon where the inflammation subsided. An additional window was created in the mesenteric border at this point, and the Contour stapler was once again used to divide the bowel. The intervening mesenteric segment was divided with the ligature and removed. Care was taken not to involve the retroperitoneal structures throughout the procedure. The patient then had examination of the distal stump and it appeared inflamed yet with some ischemia of the staple line. The decision was made to take an additional portion of the remaining sigmoid colon to the peritoneal reflection. This was mobilized using electrocautery along the mesenteric border high close to the bowel wall and divided with a LigaSure to the mesenteric border of the rectosigmoid junction. A window was created in the mesentery and the bowel was divided once again with Contour stapler. This staple line was noted to be supple and hemostatic. The intervening bowel segment was divided at the mesentery dividing the superior hemorrhoidal vessels with the LigaSure and the segment was sent to pathology with a new distal margin marked with a suture. The abdomen was then thoroughly irrigated and there was bleeding from the mesenteric border and the pelvis and this was suture ligated and some FloSeal was placed as well. There was no evidence of any bleeding at this point. The bowel appeared viable and to allow adequate length the left colic vessel was then divided to allow the intervening segment to be mobilized into the left upper quadrant for a colostomy. This was necessary due to the area of perforation requiring a middescending bowel division as well as the patient's obesity. A colostomy incision was then made on the skin in the left upper quadrant, taken down to the anterior fascia which was then divided in a cruciate fashion. The rectus muscle was divided bluntly down to the posterior perineum which was then opened with electrocautery widely to allow two fingerbreadths to pass easily. The bowel and the abdomen were then prepared as a lot of the pericolonic fat was removed from the distal and to allow the colostomy to be brought through the abdomen out to the skin with approximately 4 cm above the skin prior to closure. It was viable and there was no evidence of any other tension. Next, as there was no evidence of any other abnormalities of the abdomen and spleen was examined and noted to be hemostatic and the abdomen was closed. The anterior fascia was reapproximated using 2 looped #1 PDS sutures and tied in the midline without tension. The subcutaneous tissues were then thoroughly irrigated and the skin edges were reapproximated using ca. Sterile towel was placed over the incision. Colostomy was then matured with three-point fixation with interrupted 3-0 Vicryl sutures. It was viable and widely patent the fascia under direct palpation. The colostomy was minimally dusky secondary to the amount of subcu fat that it traversed. The fascia was examined prior to closure of the colostomy at the skin and was without tension. At this point, the dressings were applied. The patient was extubated and taken to the recovery room in stable condition. All sponge and needle counts reported correct. Record Of Operation [address] [address] NAME: JOSE GUADALUPE GOLDBERG : 43 STATUS : ADM IN [facility]#: [id number] AGE: 70 ADM/REG DATE : 08/26/16 MR#: [id number] REPORT SERV DATE: 08/26/16 DICTATED BY: JASON GARDNER DATE: 08/26/16 REPORT STATUS : Draft TRANSCRIBED BY: LENA DATE: 08/26/16 SYEDA/LENA Jason Gardner M.D. / [id number] CC: Kyle Navarro M.D. Paul G Smith, M.D.
[2016-08-26 06:48] LABS: BASOPHILS 0.1 %; BASOPHILS ABSOLUTE 0.01 10/3/uL (0.0-0.16); EOSINOPHILS 0 %; HEMATOCRIT 37.3 % (36.0-48.0); HEMOGLOBIN 12.5 g/dL (12.0-16.0); IMMATURE GRANULOCYTES 0.5 %; IMMATURE GRANULOCYTES ABSOLUTE 0.05 10/3/uL (0.0-0.11); LYMPHOCYTES 14.5 %; LYMPHOCYTES ABSOLUTE 1.59 10/3/uL (0.67-4.30); MANUAL DIFF NO %; MEAN CORPUS HGB CONC 33.5 g/dL (32.0-36.0); MEAN CORPUSCULAR HEMOGLOB 29.1 pg (26.0-34.0); MEAN CORPUSCULAR VOLUME 86.9 fL (80-100); MEAN PLATELET VOLUME 10.5 fL (9.2-13.0); MONOCYTES 4.5 %; MONOCYTES ABSOLUTE 0.49 10/3/uL (0.21-1.20); NEUTROPHILS 80.4 %; NEUTROPHILS ABSOLUTE 8.84 10/3/uL (2.02-8.40); PLATELET COUNT 173 10/3/uL (150-400); RBC DISTRIBUTION WIDTH 15.2 % (12.0-16.0); RED CELL COUNT 4.29 10/6/uL (4.0-5.6)
[2016-08-26 07:04] LABS: A/G RATIO 1.1 (0.7-1.9); ALBUMIN 3.3 G/DL (3.5-5.0); ALKALINE PHOSPHATASE 60 U/L (45-117); BUN (BLOOD UREA NITROGEN) 20 MG/DL (6-23); CHLORIDE, SERUM 103 MMOL/L (96-112); CO2 (CARBON DIOXIDE) 29 MMOL/L (24-34); CREATININE 0.74 MG/DL (0.55-1.02); GFR AFRICAN AMERICAN 94 ML/MIN (>=60); GFR NON AFRICAN AMERICAN 81 ML/MIN (>=60); GLUCOSE, SERUM 117 MG/DL (60-99); POTASSIUM, SERUM 3.3 MMOL/L (3.5-5.3); SGOT(AST) 20 U/L (5-40); SGPT(ALT) 30 U/L (5-65); SODIUM, SERUM 140 MMOL/L (135-148); TOTAL BILIRUBIN 1.4 MG/DL (0-1.2); TOTAL PROTEIN 6.3 G/DL (6.0-8.5)
[2016-08-26 07:31] LABS: ASCORBIC ACID (UR NOT ORDER) NEG (NEG); BILIRUBIN, URINE NEGATIVE (NEG); KETONE, URINE NEGATIVE (NEG); LEUKOCYTE ESTERASE(NOT OR MOD (NEG); NITRITE (URINE) NEG (NEG); WBC (NOT ORDERED) (RFLEX) 33 (0-5)
[2016-08-26 12:25] LABS: ASCORBIC ACID (UR NOT ORDER) NEG (NEG); BILIRUBIN, URINE NEGATIVE (NEG); KETONE, URINE NEGATIVE (NEG); LEUKOCYTE ESTERASE(NOT OR NEG (NEG); WBC (NOT ORDERED) (RFLEX) 3 (0-5)
[2016-08-26 14:33] LABS: BASOPHILS 0.1 %; BASOPHILS ABSOLUTE 0.01 10/3/uL (0.0-0.16); EOSINOPHILS 0 %; HEMATOCRIT 38.2 % (36.0-48.0); HEMOGLOBIN 12.6 g/dL (12.0-16.0); IMMATURE GRANULOCYTES 0.4 %; IMMATURE GRANULOCYTES ABSOLUTE 0.05 10/3/uL (0.0-0.11); LYMPHOCYTES 6.6 %; LYMPHOCYTES ABSOLUTE 0.82 10/3/uL (0.67-4.30); MEAN CORPUSCULAR HEMOGLOB 29.4 pg (26.0-34.0); MEAN PLATELET VOLUME 10.6 fL (9.2-13.0); MONOCYTES 4.5 %; MONOCYTES ABSOLUTE 0.56 10/3/uL (0.21-1.20); NEUTROPHILS 88.4 %; NEUTROPHILS ABSOLUTE 11.03 10/3/uL (2.02-8.40); RBC DISTRIBUTION WIDTH 15.4 % (12.0-16.0); RED CELL COUNT 4.29 10/6/uL (4.0-5.6); WHITE BLOOD CELLS 12.5 10/3/uL (4.5-10.5)
[2016-08-26 14:37] LABS: MANUAL DIFF NO %; PLATELET COUNT 226 10/3/uL (150-400)
[2016-08-26 14:46] LABS: BUN (BLOOD UREA NITROGEN) 20 MG/DL (6-23); CALCIUM, SERUM 8.4 MG/DL (8.5-10.4); CHLORIDE, SERUM 102 MMOL/L (96-112); CO2 (CARBON DIOXIDE) 25 MMOL/L (24-34); CREATININE 0.78 MG/DL (0.55-1.02); GFR AFRICAN AMERICAN 88 ML/MIN (>=60); GFR NON AFRICAN AMERICAN 76 ML/MIN (>=60); SODIUM, SERUM 139 MMOL/L (135-148)
[2016-08-26 14:47] LABS: GLUCOSE, SERUM 281 MG/DL (60-99)
[2016-08-28 06:42] LABS: BASOPHILS 0 %; EOSINOPHILS 0.9 %; HEMOGLOBIN 10.6 g/dL (12.0-16.0); IMMATURE GRANULOCYTES 0.6 %; IMMATURE GRANULOCYTES ABSOLUTE 0.06 10/3/uL (0.0-0.11); LYMPHOCYTES 9.8 %; LYMPHOCYTES ABSOLUTE 1.05 10/3/uL (0.67-4.30); MEAN CORPUS HGB CONC 32.6 g/dL (32.0-36.0); MEAN CORPUSCULAR HEMOGLOB 29.6 pg (26.0-34.0); MEAN CORPUSCULAR VOLUME 90.8 fL (80-100); MEAN PLATELET VOLUME 10.9 fL (9.2-13.0); MONOCYTES 7.7 %; MONOCYTES ABSOLUTE 0.82 10/3/uL (0.21-1.20); NEUTROPHILS ABSOLUTE 8.68 10/3/uL (2.02-8.40); PLATELET COUNT 186 10/3/uL (150-400); RBC DISTRIBUTION WIDTH 14.7 % (12.0-16.0); RED CELL COUNT 3.58 10/6/uL (4.0-5.6); WHITE BLOOD CELLS 10.7 10/3/uL (4.5-10.5)
[2016-08-28 06:43] LABS: HEMATOCRIT 32.5 % (36.0-48.0); MANUAL DIFF NO %
[2016-08-28 07:06] LABS: BUN (BLOOD UREA NITROGEN) 8 MG/DL (6-23); CALCIUM, SERUM 9.5 MG/DL (8.5-10.4); CHLORIDE, SERUM 99 MMOL/L (96-112); CO2 (CARBON DIOXIDE) 30 MMOL/L (24-34); CREATININE 0.64 MG/DL (0.55-1.02); FREE T4 1.63 NG/DL (0.76-1.46); GFR AFRICAN AMERICAN 103 ML/MIN (>=60); GFR NON AFRICAN AMERICAN 89 ML/MIN (>=60); GLUCOSE, SERUM 138 MG/DL (60-99); PHOSPHORUS, SERUM 1.7 MG/DL (2.5-4.5); POTASSIUM, SERUM 4.3 MMOL/L (3.5-5.3); SODIUM, SERUM 131 MMOL/L (135-148); ULTRASENSITIVE TSH 0.732 MCIU/ML (0.358-3.740)
[2016-08-29 06:49] LABS: HEMOGLOBIN 9.3 g/dL (12.0-16.0); MEAN CORPUS HGB CONC 33.2 g/dL (32.0-36.0); MEAN CORPUSCULAR VOLUME 90.3 fL (80-100); PLATELET COUNT 159 10/3/uL (150-400); RBC DISTRIBUTION WIDTH 14.5 % (12.0-16.0); WHITE BLOOD CELLS 7.2 10/3/uL (4.5-10.5)
[2016-08-29 06:50] LABS: MANUAL DIFF YES %
[2016-08-29 07:08] LABS: EOSINOPHILS 2 %; EOSINOPHILS ABSOLUTE (CALC) 0.14 10/3/uL (0.0-0.53); LYMPHOCYTES 11 %; LYMPHOCYTES ABSOLUTE (CALC) 0.79 10/3/uL (0.67-4.30); MONOCYTES 11 %; MONOCYTES ABSOLUTE (CALC) 0.79 10/3/uL (0.21-1.20); NEUTROPHILS ABSOLUTE (CALC) 5.47 10/3/uL (2.02-8.40); PLATELET ESTIMATE ADQ (ADEQUATE); RBC MORPHOLOGY NORM (NORMAL); SEGMENTED NEUTROPHIL (0) 76 %; TOTAL NUCLEATED CELLS 100
[2016-08-29 07:18] LABS: A/G RATIO 0.6 (0.7-1.9); ALBUMIN 2.1 G/DL (3.5-5.0); ALKALINE PHOSPHATASE 69 U/L (45-117); BUN (BLOOD UREA NITROGEN) 6 MG/DL (6-23); CALCIUM, SERUM 8.8 MG/DL (8.5-10.4); CHLORIDE, SERUM 102 MMOL/L (96-112); CO2 (CARBON DIOXIDE) 30 MMOL/L (24-34); CREATININE 0.46 MG/DL (0.55-1.02); GFR AFRICAN AMERICAN 115 ML/MIN (>=60); GFR NON AFRICAN AMERICAN 99 ML/MIN (>=60); GLOBULIN 3.4 G/DL (2.5-4.1); GLUCOSE, SERUM 117 MG/DL (60-99); POTASSIUM, SERUM 4.1 MMOL/L (3.5-5.3); SGPT(ALT) 32 U/L (5-65); SODIUM, SERUM 135 MMOL/L (135-148); TOTAL BILIRUBIN 1.1 MG/DL (0-1.2); TOTAL PROTEIN 5.5 G/DL (6.0-8.5)
[2016-08-29 07:21] LABS: SGOT(AST) 32 U/L (5-40)
[2016-08-30 06:10] LABS: BASOPHILS 0.1 %; BASOPHILS ABSOLUTE 0.01 10/3/uL (0.0-0.16); EOSINOPHILS 1.4 %; EOSINOPHILS ABSOLUTE 0.12 10/3/uL (0.0-0.53); HEMATOCRIT 29.3 % (36.0-48.0); HEMOGLOBIN 9.6 g/dL (12.0-16.0); IMMATURE GRANULOCYTES 0.8 %; IMMATURE GRANULOCYTES ABSOLUTE 0.07 10/3/uL (0.0-0.11); MANUAL DIFF NO %; MEAN CORPUS HGB CONC 32.8 g/dL (32.0-36.0); MEAN CORPUSCULAR HEMOGLOB 29.3 pg (26.0-34.0); MEAN CORPUSCULAR VOLUME 89.3 fL (80-100); MEAN PLATELET VOLUME 10.2 fL (9.2-13.0); MONOCYTES 12.4 %; MONOCYTES ABSOLUTE 1.04 10/3/uL (0.21-1.20); NEUTROPHILS 73.3 %; NEUTROPHILS ABSOLUTE 6.12 10/3/uL (2.02-8.40); PLATELET COUNT 181 10/3/uL (150-400); RBC DISTRIBUTION WIDTH 14.5 % (12.0-16.0); RED CELL COUNT 3.28 10/6/uL (4.0-5.6); WHITE BLOOD CELLS 8.4 10/3/uL (4.5-10.5)
[2016-08-30 06:25] LABS: A/G RATIO 0.6 (0.7-1.9); ALBUMIN 2.3 G/DL (3.5-5.0); ALKALINE PHOSPHATASE 73 U/L (45-117); BUN (BLOOD UREA NITROGEN) 4 MG/DL (6-23); CALCIUM, SERUM 8.8 MG/DL (8.5-10.4); CHLORIDE, SERUM 102 MMOL/L (96-112); CO2 (CARBON DIOXIDE) 33 MMOL/L (24-34); CREATININE 0.54 MG/DL (0.55-1.02); GFR AFRICAN AMERICAN 109 ML/MIN (>=60); GFR NON AFRICAN AMERICAN 94 ML/MIN (>=60); GLOBULIN 3.6 G/DL (2.5-4.1); GLUCOSE, SERUM 121 MG/DL (60-99); SGOT(AST) 30 U/L (5-40); SGPT(ALT) 30 U/L (5-65); SODIUM, SERUM 134 MMOL/L (135-148); TOTAL BILIRUBIN 0.9 MG/DL (0-1.2); TOTAL PROTEIN 5.9 G/DL (6.0-8.5)
[2016-08-31 06:29] LABS: BASOPHILS 0.2 %; BASOPHILS ABSOLUTE 0.02 10/3/uL (0.0-0.16); EOSINOPHILS 0.9 %; HEMATOCRIT 30.5 % (36.0-48.0); IMMATURE GRANULOCYTES 1.1 %; IMMATURE GRANULOCYTES ABSOLUTE 0.13 10/3/uL (0.0-0.11); LYMPHOCYTES 9.9 %; LYMPHOCYTES ABSOLUTE 1.15 10/3/uL (0.67-4.30); MEAN CORPUS HGB CONC 32.8 g/dL (32.0-36.0); MEAN CORPUSCULAR HEMOGLOB 29.1 pg (26.0-34.0); MEAN CORPUSCULAR VOLUME 88.7 fL (80-100); MEAN PLATELET VOLUME 11.1 fL (9.2-13.0); MONOCYTES 8.2 %; MONOCYTES ABSOLUTE 0.96 10/3/uL (0.21-1.20); NEUTROPHILS 79.7 %; NEUTROPHILS ABSOLUTE 9.28 10/3/uL (2.02-8.40); NUCLEATED RED BLOOD CELLS 0.3 /100WBC (0-0); PLATELET COUNT 202 10/3/uL (150-400); RBC DISTRIBUTION WIDTH 14.7 % (12.0-16.0); RED CELL COUNT 3.44 10/6/uL (4.0-5.6); WHITE BLOOD CELLS 11.6 10/3/uL (4.5-10.5)
[2016-08-31 06:30] LABS: MANUAL DIFF NO %
[2016-08-31 06:37] LABS: BUN (BLOOD UREA NITROGEN) 5 MG/DL (6-23); CALCIUM, SERUM 8.7 MG/DL (8.5-10.4); CHLORIDE, SERUM 101 MMOL/L (96-112); CREATININE 0.48 MG/DL (0.55-1.02); GFR AFRICAN AMERICAN 114 ML/MIN (>=60); GFR NON AFRICAN AMERICAN 98 ML/MIN (>=60); GLUCOSE, SERUM 135 MG/DL (60-99); POTASSIUM, SERUM 4.1 MMOL/L (3.5-5.3); SODIUM, SERUM 137 MMOL/L (135-148)
[2016-08-31 06:38] LABS: CO2 (CARBON DIOXIDE) 28 MMOL/L (24-34)
[2016-08-31] MEDS ORDERED: CIP5 PO (14:54)
[2016-08-31] MEDS ORDERED: NORCO1 TA1 PO (14:55)
== END 2016-08-31 18:03 | disposition home or self-care (01) | DRG 330 ==
LOC: ER 07:57 → SDC/OF 10:19 → MIC 13:19 → 5SO 08-27 12:26
PROVIDERS: Specialist; Surgery
PROC: 0DBG0ZZ Excision of Left Large Intestine, Open Approach (ICD-10-PCS; principal; 2016-08-26 09:45)
PROC: 0D1M0Z4 Bypass Descending Colon to Cutaneous, Open Approach (ICD-10-PCS; 2016-08-26 09:45)
DX: K57.20 Diverticulitis of large intestine with perforation and abscess without bleeding (principal); N39.0 Urinary tract infection, site not specified; Z68.33 Body mass index [BMI] 33.0-33.9, adult; E11.40 Type 2 diabetes mellitus with diabetic neuropathy, unspecified; I11.0 Hypertensive heart disease with heart failure; I50.9 Heart failure, unspecified; E66.01 Morbid (severe) obesity due to excess calories; J45.909 Unspecified asthma, uncomplicated; E03.9 Hypothyroidism, unspecified; E87.6 Hypokalemia; K44.9 Diaphragmatic hernia without obstruction or gangrene; E78.00 Pure hypercholesterolemia, unspecified; E78.5 Hyperlipidemia, unspecified; I34.0 Nonrheumatic mitral (valve) insufficiency; Z79.82 Long term (current) use of aspirin; Z79.899 Other long term (current) drug therapy; Z88.5 Allergy status to narcotic agent; Z82.49 Family history of ischemic heart disease and other diseases of the circulatory system; Z83.3 Family history of diabetes mellitus; Z90.710 Acquired absence of both cervix and uterus; Z90.49 Acquired absence of other specified parts of digestive tract; Z98.890 Other specified postprocedural states
CPT/HCPCS: 74176; 80048; 80053; 81001; 82962; 83036; 83690; 83735; 84100; 84439; 84443; 85025; 87070; 87075; 87077; 87086; 87102; 87186; 87205; 87641; 88307; 93005; 94640; 96374; 96375; 96376; 99285; A9270-GY; J0690; J1170; J2250; J2370; J2405; J2543; J2550; J2710; J3010

== ENCOUNTER 2016-09-10 15:36 | Inpatient (IN) | payer OTHER ==
--- NOTE | ~2016-09-10 | DS ---
Discharge Summary [facility] [address] [facility] [place]. [address] NAME: JOSE GUADALUPE GOLDBERG : 43 STATUS : DIS IN PAT#: [id number] AGE: 70 ADM/REG DATE : 09/10/16 MR#: [id number] REPORT SERV DATE: 10/02/16 DICTATED BY: JASON GARDNER DATE: 09/28/16 REPORT STATUS : Draft TRANSCRIBED BY: LENA DATE: 09/28/16 Data Collection from hospitalization DISCHARGE DIAGNOSES: 1. Abdominal wound dehiscence. 2. Type 2 diabetes mellitus. 3. Hypertension. 4. History of asthma. 5. Neuropathy. 6. Hypercholesterolemia. 7. History of transient ischemic attack. 8. Morbid obesity. 9. Hypothyroidism. CONSULTATIONS: None. PROCEDURES PERFORMED: CT scan of the abdomen and pelvis with contrast on 09/11/2016. MEDICATIONS: Norvasc 10 mg daily, Kes[place]wn Aspirin 325 mg daily, Lipitor 40 mg at bedtime, vitamin D 5000 units daily, Celexa 40 mg every 48 hours, levothyroxine 50 mcg daily, Zyrtec 10 mg daily, Cozaar 50 mg daily, Singulair 10 mg at bedtime, Ditropan 10 mg at bedtime, Prilosec 20 mg daily, Ranexa 500 mg twice a day, Glucophage 500 mg at bedtime, [place] 5/325 one tablet every six hours as needed, Xanax 0.5 mg daily as needed, calcium OTC 1000 mg daily, QVAR two sprays via inhaler twice a day, ProAir two puffs via inhaler as needed, IBgard one capsule daily, and albuterol one nebulized inhalation as needed. CONDITION AT DISCHARGE: Stable. DISPOSITION: The patient was discharged to [facility] on an 1800-calorie diabetic diet with activities as instructed. HOSPITAL COURSE: This is a 70-year-old female who had recently been admitted with a perforated descending colon and sigmoid colon secondary to diverticulitis. She had undergone a left colectomy and descending colectomy with colostomy on 08/26/2016. She had a history of asthma requiring 4 liters nasal cannula oxygen at night. She has type 2 diabetes mellitus with neuropathy, hypercholesterolemia, history of TIA, morbid obesity, hypertension, and hypothyroidism as well as a question of heart failure. She had been discharged home and had done well with home health and colostomy changes. She presented a week prior to this admission to my office with a colostomy that was so over full that it was leaking all over the incisions. The wound was clean and was noted to be intact. Half of the ca were taken out. She presented to the office on the day of this admission for followup and had complete disruption of her colostomy and the bag had been changed the day prior. She had not been instructed to change the bag when it becomes half full and it was completely full with overflow with a large amount of stool throughout the entire incision and her abdominal wall. The colostomy appliance was taken down in conjunction with wound care nursing in the office and some ca were removed with some serous drainage being drained from a cavity at the umbilicus where stool was pooling. It was uncertain if this was a seroma that drained or if it was secondarily infected from colonization from soilage Discharge Summary [address] [address] NAME: JOSE GUADALUPE GOLDBERG : 41 STATUS : DIS IN PAT#: [id number] AGE: 70 ADM/REG DATE : 09/10/16 MR#: [id number] REPORT SERV DATE: 10/02/16 DICTATED BY: JASON GARDNER DATE: 09/28/16 REPORT STATUS : Draft TRANSCRIBED BY: LENA DATE: 09/28/16 from the colostomy. The wound was packed and the fascia appeared to be intact. There was no evidence of any undrained abscesses. The patient was admitted to the hospital at this time for further evaluation and treatment. Upon admission, a CT scan of the abdomen and pelvis was performed. IV fluids were started. Aggressive wound care was going to began. The following day, she had no acute abdominal pain. Vac-Pac was going to be placed. She was going to undergo colostomy education. On 09/12/2016, she was evaluated by Occupational Therapy. She said she was feeling better. She had no complaints of abdominal pain at this time. IV fluids were continued. On 09/13/2016, she did have some nausea that morning. She had no complaints of abdominal pain. On 09/15/2016, she was progressing satisfactorily. Discharge planning was performed. On 09/17/2016, the patient had no complaints. She had not had a Vac-Pac since prior to discharge. She had active bowel sounds. She was alert and cooperative. She had no focal deficits. Discharge instructions were given. Due to her improved and stable condition, she was discharged to [facility] with the above-stated instructions. Information collected by: Elizabeth Mauro I submit the above information as my discharge summary. MAY/LENA Jason Gardner M.D. / [id number] CC: Kyle Navarro M.D. [facility]
--- NOTE | ~2016-09-10 | HP ---
History And Physical [place] [id number] [facility] [place]. [address] NAME: JOSE GUADALUPE GOLDBERG : 41 STATUS : ADM IN [facility]#: [id number] AGE: 70 ADM/REG DATE : 09/10/16 MR#: [id number] REPORT SERV DATE: 09/11/16 DICTATED BY: JASON GARDNER DATE: 09/10/16 REPORT STATUS : Draft TRANSCRIBED BY: MODL DATE: 09/10/16 DATE OF ADMISSION: 09/10/2016 REASON FOR ADMISSION: Abdominal wound cellulitis with wound breakdown and lack of colostomy education. HISTORY OF PRESENT ILLNESS: This pleasant 70-year-old female was admitted recently with a perforated descending colon and sigmoid colon secondary to diverticulitis. She underwent a left colectomy and descending colectomy with colostomy on 08/26/2016. She has a history of asthma requiring 4 L nasal cannula oxygen at night, diabetes mellitus type 2 with neuropathy, hypercholesterolemia, history of TIA in 2011, morbid obesity, hypertension, hypothyroidism, and a question of heart failure. She has been seen by Dr. René Gray of Cardiology as well as Dr. Lopez Elam III. Her event marketing representative is Dr. Sixto Bennett. She was discharged to home and has done well with home health colostomy changes. She presented last week to my office with a colostomy that was so over full, but it was leaking all over the incisions. The wound was cleaned and was noted to be intact and half of the ca were taken out. She presented to the office today for followup with complete disruption of her colostomy that with the bag that was changed the day prior. She had not been instructed to change the bag when it was half full and it was completely full with overflow with a large amount of stool throughout the entire incision and her abdominal wall. The colostomy appliance was taken down in conjunction with Wound Care nursing in the office and some ca were removed with some serous drainage being drained from a cavity at the umbilicus where stool was pooling. It is uncertain if this was a seroma that drained or if it was secondarily infected from colonization from soilage from the colostomy. The wound was packed. The fascia appears to be intact and there was no evidence of any undrained abscesses. She will be admitted to the hospital for IV fluids, colostomy education, and to initiate negative pressure wound therapy on 09/11/[address] scan to rule out any intraabdominal abscess or fascial disruption. She is not in acute distress at this time. She needs admission secondary for the aggressive wound care and to prevent further wound dehiscence and possible further complication. PAST MEDICAL HISTORY: As above. PAST SURGICAL HISTORY: Back surgery x2 with kyphoplasty in 2014; EGD, 06/13/2016; cardiac catheterization, 04/28/2009; appendectomy; open cholecystectomy; right breast cyst removal, and a colonoscopy in 2009. MEDICATIONS: Please see hospital chart. ALLERGIES: MORPHINE AND ADHESIVE TAPE. SOCIAL HISTORY: The patient is a . She lives in a single-level home. She denies alcohol, tobacco, or illicit drug usage. FAMILY HISTORY: Positive for coronary artery disease and diabetes. History And Physical [address] [address] NAME: JOSE GUADALUPE GOLDBERG : 41 STATUS : ADM IN [facility]#: [id number] AGE: 70 ADM/REG DATE : 09/10/16 MR#: [id number] REPORT SERV DATE: 09/11/16 DICTATED BY: JASON GARDNER DATE: 09/10/16 REPORT STATUS : Draft TRANSCRIBED BY: LENA DATE: 09/10/16 REVIEW OF SYSTEMS: No headache, blurred vision, dizziness, chest pain, shortness of breath, cough, dyspnea on exertion, syncope, palpitations, jaundice, or itching. PHYSICAL EXAMINATION: GENERAL: Obese female, in no apparent distress. NECK: Supple without adenopathy. CARDIOVASCULAR: Regular rate and rhythm. RESPIRATORY: The patient has some poor inspiratory effort. She has a prolonged expiratory phase. There is no overt wheezing. ABDOMEN: Obese, soft. The patient has wound breakdown with 4 to 5 cm depth wound dehiscence with palpable fascia that is intact at the level of the umbilicus with four ca being removed. There is no bulla, crepitans, or enteric contents. The colostomy is viable with some mucocutaneous separation medially. It is divided. BACK: No CVA tenderness. EXTREMITIES: No clubbing, cyanosis, edema, or jaundice. ASSESSMENT: 1. Status post colectomy and colostomy for perforated diverticulitis. 2. Multiple medical problems as above. PLAN: The patient will be admitted for IV fluids and labs and for initiation of aggressive wound care to include negative pressure wound therapy with white sponge to help prevent possible fistula as well as a colostomy care with mucocutaneous separation and current poor understanding of her dressing care. We will follow her blood glucose closely and consider hospitalist's consultation for any difficulty with medical management. She is aware of the current therapy and agrees to CT scan to evaluate the rest of her abdominal wall and the intraabdominal contents. SYEDA/LENA Jason Gardner M.D. / [id number] CC: Kyle Navarro M.D.
[~2016-09-10 15:36] MED LIST changes: +CIP5 PO; +NORCO1 TA1 PO
[2016-09-10 17:27] LABS: BUN (BLOOD UREA NITROGEN) 11 MG/DL (6-23); CALCIUM, SERUM 8.5 MG/DL (8.5-10.4); CHLORIDE, SERUM 98 MMOL/L (96-112); CO2 (CARBON DIOXIDE) 31 MMOL/L (24-34); CREATININE 0.61 MG/DL (0.55-1.02); GFR AFRICAN AMERICAN 105 ML/MIN (>=60); GFR NON AFRICAN AMERICAN 91 ML/MIN (>=60); GLUCOSE, SERUM 86 MG/DL (60-99); POTASSIUM, SERUM 3.3 MMOL/L (3.5-5.3); SODIUM, SERUM 139 MMOL/L (135-148)
[2016-09-10] MEDS ORDERED: X5 PO (17:52)
[2016-09-10] MEDS ORDERED: NORCO1 TA1 PO (17:52)
[2016-09-10] MEDS ORDERED: NORV10 PO (17:52)
[2016-09-10] MEDS ORDERED: COZ50 PO (17:52)
[2016-09-10] MEDS ORDERED: RAN500 PO (17:52)
[2016-09-10] MEDS ORDERED: PRILO PO (17:53)
[2016-09-10] MEDS ORDERED: SINGULAIR1 PO (17:53)
[2016-09-10] MEDS ORDERED: GLUCPH PO (17:53)
[2016-09-10] MEDS ORDERED: DITROPAN XL10 MG PO (17:53)
[2016-09-10] MEDS ORDERED: LIPITOR40 PO (17:54)
[2016-09-10] MEDS ORDERED: CELEXA40 MG PO (17:54)
[2016-09-10] MEDS ORDERED: LEVOTHYROXIN50 MCG PO (17:54)
[2016-09-10] MEDS ORDERED: ZYRTEC ALLGY10 MG PO (17:54)
[2016-09-10] MEDS ORDERED: CALCIUM OTC PO (17:55)
[2016-09-10] MEDS ORDERED: ASABAYER PO (17:55)
[2016-09-10] MEDS ORDERED: D 5000 PO (17:55)
[2016-09-10] MEDS ORDERED: IB GUARD PO (17:56)
[2016-09-10] MEDS ORDERED: ALBUTEROL0.083 % INH (17:56)
[2016-09-10] MEDS ORDERED: PROAIR HFA INH (17:56)
[2016-09-10] MEDS ORDERED: QVAR80 MCG INH (17:56)
[2016-09-10 18:06] LABS: BASOPHILS 0.2 %; BASOPHILS ABSOLUTE 0.02 10/3/uL (0.0-0.16); EOSINOPHILS 1.1 %; EOSINOPHILS ABSOLUTE 0.09 10/3/uL (0.0-0.53); HEMATOCRIT 30.9 % (36.0-48.0); IMMATURE GRANULOCYTES ABSOLUTE 0.08 10/3/uL (0.0-0.11); LYMPHOCYTES 19.5 %; MEAN CORPUS HGB CONC 32.4 g/dL (32.0-36.0); MEAN CORPUSCULAR HEMOGLOB 28.2 pg (26.0-34.0); MEAN PLATELET VOLUME 9.2 fL (9.2-13.0); MONOCYTES 10.9 %; MONOCYTES ABSOLUTE 0.89 10/3/uL (0.21-1.20); NEUTROPHILS 67.3 %; NEUTROPHILS ABSOLUTE 5.52 10/3/uL (2.02-8.40); RBC DISTRIBUTION WIDTH 14.5 % (12.0-16.0); RED CELL COUNT 3.55 10/6/uL (4.0-5.6); WHITE BLOOD CELLS 8.2 10/3/uL (4.5-10.5)
[2016-09-10 18:07] LABS: MANUAL DIFF NO %; PLATELET COUNT 320 10/3/uL (150-400)
[2016-09-11 05:59] LABS: BASOPHILS 0.4 %; BASOPHILS ABSOLUTE 0.03 10/3/uL (0.0-0.16); EOSINOPHILS 1.3 %; EOSINOPHILS ABSOLUTE 0.09 10/3/uL (0.0-0.53); HEMATOCRIT 30.6 % (36.0-48.0); IMMATURE GRANULOCYTES 0.9 %; IMMATURE GRANULOCYTES ABSOLUTE 0.06 10/3/uL (0.0-0.11); LYMPHOCYTES 22.9 %; LYMPHOCYTES ABSOLUTE 1.58 10/3/uL (0.67-4.30); MEAN CORPUS HGB CONC 32.7 g/dL (32.0-36.0); MEAN CORPUSCULAR HEMOGLOB 28.7 pg (26.0-34.0); MEAN CORPUSCULAR VOLUME 87.9 fL (80-100); MEAN PLATELET VOLUME 9.6 fL (9.2-13.0); MONOCYTES 11.7 %; MONOCYTES ABSOLUTE 0.81 10/3/uL (0.21-1.20); NEUTROPHILS 62.8 %; NEUTROPHILS ABSOLUTE 4.34 10/3/uL (2.02-8.40); PLATELET COUNT 337 10/3/uL (150-400); RBC DISTRIBUTION WIDTH 14.5 % (12.0-16.0); RED CELL COUNT 3.48 10/6/uL (4.0-5.6); WHITE BLOOD CELLS 6.9 10/3/uL (4.5-10.5)
[2016-09-11 06:00] LABS: MANUAL DIFF NO %
[2016-09-11 06:13] LABS: BUN (BLOOD UREA NITROGEN) 9 MG/DL (6-23); CALCIUM, SERUM 8.5 MG/DL (8.5-10.4); CHLORIDE, SERUM 99 MMOL/L (96-112); CO2 (CARBON DIOXIDE) 30 MMOL/L (24-34); CREATININE 0.61 MG/DL (0.55-1.02); GFR AFRICAN AMERICAN 105 ML/MIN (>=60); GFR NON AFRICAN AMERICAN 91 ML/MIN (>=60); POTASSIUM, SERUM 3.7 MMOL/L (3.5-5.3); SODIUM, SERUM 137 MMOL/L (135-148)
[2016-09-11 06:14] LABS: GLUCOSE, SERUM 139 MG/DL (60-99)
[2016-09-12 06:56] LABS: BUN (BLOOD UREA NITROGEN) 7 MG/DL (6-23); CALCIUM, SERUM 8.3 MG/DL (8.5-10.4); CHLORIDE, SERUM 100 MMOL/L (96-112); CREATININE 0.52 MG/DL (0.55-1.02); GFR AFRICAN AMERICAN 111 ML/MIN (>=60); GFR NON AFRICAN AMERICAN 95 ML/MIN (>=60); POTASSIUM, SERUM 3.6 MMOL/L (3.5-5.3); SODIUM, SERUM 134 MMOL/L (135-148)
[2016-09-12 06:58] LABS: CO2 (CARBON DIOXIDE) 24 MMOL/L (24-34); GLUCOSE, SERUM 107 MG/DL (60-99)
[2016-09-13 04:53] LABS: BUN (BLOOD UREA NITROGEN) 7 MG/DL (6-23); CALCIUM, SERUM 8.3 MG/DL (8.5-10.4); CHLORIDE, SERUM 104 MMOL/L (96-112); CREATININE 0.51 MG/DL (0.55-1.02); GFR AFRICAN AMERICAN 111 ML/MIN (>=60); GFR NON AFRICAN AMERICAN 96 ML/MIN (>=60); GLUCOSE, SERUM 127 MG/DL (60-99); POTASSIUM, SERUM 3.8 MMOL/L (3.5-5.3); SODIUM, SERUM 139 MMOL/L (135-148)
[2016-09-13 04:54] LABS: BASOPHILS 0.6 %; BASOPHILS ABSOLUTE 0.04 10/3/uL (0.0-0.16); EOSINOPHILS 1.7 %; EOSINOPHILS ABSOLUTE 0.12 10/3/uL (0.0-0.53); HEMATOCRIT 30.6 % (36.0-48.0); IMMATURE GRANULOCYTES 1.1 %; IMMATURE GRANULOCYTES ABSOLUTE 0.08 10/3/uL (0.0-0.11); LYMPHOCYTES ABSOLUTE 1.53 10/3/uL (0.67-4.30); MEAN CORPUS HGB CONC 32.7 g/dL (32.0-36.0); MEAN CORPUSCULAR VOLUME 88.7 fL (80-100); MEAN PLATELET VOLUME 9.7 fL (9.2-13.0); MONOCYTES 12.3 %; MONOCYTES ABSOLUTE 0.86 10/3/uL (0.21-1.20); NEUTROPHILS 62.3 %; NEUTROPHILS ABSOLUTE 4.34 10/3/uL (2.02-8.40); PLATELET COUNT 304 10/3/uL (150-400); RBC DISTRIBUTION WIDTH 14.7 % (12.0-16.0); RED CELL COUNT 3.45 10/6/uL (4.0-5.6)
[2016-09-13 04:58] LABS: MANUAL DIFF NO %
[2016-09-13 05:00] LABS: CO2 (CARBON DIOXIDE) 30 MMOL/L (24-34)
[2016-09-14 05:28] LABS: BUN (BLOOD UREA NITROGEN) 6 MG/DL (6-23); CALCIUM, SERUM 8.1 MG/DL (8.5-10.4); CHLORIDE, SERUM 106 MMOL/L (96-112); CO2 (CARBON DIOXIDE) 28 MMOL/L (24-34); CREATININE 0.53 MG/DL (0.55-1.02); GFR AFRICAN AMERICAN 110 ML/MIN (>=60); GFR NON AFRICAN AMERICAN 95 ML/MIN (>=60); GLUCOSE, SERUM 108 MG/DL (60-99); POTASSIUM, SERUM 3.8 MMOL/L (3.5-5.3); SODIUM, SERUM 141 MMOL/L (135-148)
== END 2016-09-17 14:08 | DRG 920 ==
LOC: 2SO 15:36
PROVIDERS: Surgery
DX: T81.32XA Disruption of internal operation (surgical) wound, not elsewhere classified, initial encounter (principal); L03.311 Cellulitis of abdominal wall; E11.42 Type 2 diabetes mellitus with diabetic polyneuropathy; Z99.81 Dependence on supplemental oxygen; E87.1 Hypo-osmolality and hyponatremia; E87.6 Hypokalemia; E78.00 Pure hypercholesterolemia, unspecified; E66.01 Morbid (severe) obesity due to excess calories; E03.9 Hypothyroidism, unspecified; I10 Essential (primary) hypertension; J45.909 Unspecified asthma, uncomplicated; Z90.49 Acquired absence of other specified parts of digestive tract; Z93.3 Colostomy status; Z98.890 Other specified postprocedural states; Z88.5 Allergy status to narcotic agent; Z82.49 Family history of ischemic heart disease and other diseases of the circulatory system; Z83.3 Family history of diabetes mellitus; Z86.73 Personal history of transient ischemic attack (TIA), and cerebral infarction without residual deficits
CPT/HCPCS: 74177; 80048; 82962; 85025; 97116-GP; 97162-GP; 97165-GO; 97535-GO; A9270-GY; J1170; J2405; Q9967